=== PATIENT | female | born 1955 | race Caucasian/White ===

== ENCOUNTER 2017-10-06 15:12 | Emergency (ER) | payer SELFPAY ==
[~2017-10-06] VITALS: Ht 157.5 cm; Wt 100.0 kg
[2017-10-06 15:24] VITALS: BP 190/86; PULSE 71; RESP 16; TEMP 98.5; O2SAT 96
[2017-10-06] MEDS ORDERED: MECLIZINE HCL 25 MG TAB PO ONE (15:45)
[2017-10-06] MEDS ORDERED: ONDANSETRON ODT 4 MG TAB PO ONE (15:45)
--- NOTE | 2017-10-06 15:45 | PD ---
HPI Chief Complaint: Headache Time Seen by Provider: 15:27 Travel History International Travel<30 days: No Contact w/Intl Traveler<30days: No Traveled to known affect area: No History of Present Illness HPI 62-year-old normally healthy female presents emergency department with 2 week history of intermittent central headache pain and pressure to a max of 9 out of 10, which started on Mother's Day. Patient has since had intermittent recurrent headaches with associated nausea, and vertigo for the past 2 weeks. Patient denies significant fever, chills, sore throat, postnasal drip, cough, or chest congestion. Patient denies blurred vision or blind spots. She states no previous history of migraines in the past. Currently patient feels nauseous and has vomited a couple of times today, but states her headache currently is about a 2 out of 10. This has been the worst headache of her life. She denies abdominal pain, or diarrhea. No urinary symptoms. No vaginal symptoms. She has no known drug allergies. PFSH Past Medical History Autoimmune Disease: No Social History Alcohol Use: Yes Tobacco Use: No Substance Use: No Allergies-Medications (Allergen,Severity, Reaction): Coded Allergies: No Known Allergies (Verified Allergy, Severe, 03/14/03) Reported Meds & Prescriptions Reported Meds & Active Scripts Active Review of Systems Except as stated in HPI: all other systems reviewed are Neg General / Constitutional: No: Fever, Chills Eyes: No: Diploplia, Blurred Vision, Photophobia, Drainage, Redness, Foreign Body Sensation, Pain, Tearing, Blind Spots, Visual changes, Blindness HENT: Positive: Headaches, Vertigo, Earache (Pressure in the left ear.), No: Lightheadedness, Sore Throat, Rhinitis, Rhinorrhea, Congestion, Nosebleed, Neck Stiffness, Neck Pain, Gingival Bleeding, Dental Difficulties, Ear Discharge Cardiovascular: No: Chest Pain or Discomfort, Palpitations, Irregular Rhythm Respiratory: No: Cough, Shortness of Breath, Wheezing Gastrointestinal: Positive: Nausea, Vomiting (See history of present illness), No: Diarrhea, Abdominal Pain Genitourinary: No: Dysuria Musculoskeletal: No: Pain Skin: No Rash Neurologic: No: Weakness Psychiatric: No: Depression Endocrine: No: Polydipsia Hematologic/Lymphatic: No: Easy Bruising Physical Exam Narrative GENERAL: Moderately obese female appears in no acute distress. SKIN: Warm and dry. Normal color. Normal turgor. No rash. HEAD: Atraumatic. Normocephalic. Patient complains of tenderness in the frontal sinuses as well as the right maxillary sinus with palpation and percussion EYES: Pupils equal and round. No scleral icterus. No injection or drainage. Mild rotational nystagmus noted when looking to the right. ENT: No nasal bleeding or discharge. Mucous membranes pink and moist. TMs show bilateral serous otitis with mild bulging to both TMs. Posterior pharynx is unremarkable. Airways patent. Uvula is midline. Tongue is normal-appearing NECK: Trachea midline. Supple and nontender. CARDIOVASCULAR: Regular rate and rhythm. RESPIRATORY: No accessory muscle use. Clear to auscultation. Breath sounds equal bilaterally. GASTROINTESTINAL: Abdomen soft, non-tender, nondistended. Hepatic and splenic margins not palpable. MUSCULOSKELETAL: Extremities without clubbing, cyanosis, or edema. No obvious deformities. NEUROLOGICAL: Awake and alert. No obvious cranial nerve deficits. Motor grossly within normal limits. Five out of 5 muscle strength in the arms and legs. Normal speech. PSYCHIATRIC: Appropriate mood and affect; insight and judgment normal. Data Data Last Documented VS Vital Signs Date Time Temp Pulse Resp B/P (MAP) Pulse Ox O2 Delivery O2 Flow Rate FiO2 10/06/17 15:24 98.5 71 16 190/86 (120) [address] Brain W/O Iv Contrast(Rout) (10/06/17 15:38) Ondansetron Odt (Zofran Odt) (10/06/17 15:45) Meclizine (Antivert) (10/06/17 15:45) [facility] Medical Decision Making Medical Screen Exam Complete: Yes Emergency Medical Condition: Yes Differential Diagnosis Recurrent headache. Sinusitis. Intracranial bleed. Tumor. Narrative Course Pharynx appears medically stable at time of exam. CT of the head is ordered. Patient is given 4 mg Zofran ODT p.o. Patient also given [address] is unremarkable for acute process per radiologist. Patient will be started on high-dose amoxicillin 875 mg twice daily for 10 days. Patient also started on Flonase nasal spray 2 sprays each nostril daily. Patient also started on prednisone 20 mg daily for the next 5 days. Patient given meclizine 12.5 mg 4 times daily as needed vertigo. Patient is given Zofran 4 mg every 6 hours as needed nausea. Patient to follow-up with local primary care physician or return to emergency department if symptoms worsen as needed. Diagnosis Primary Impression: Chronic sinusitis, unspecified Qualified Codes: J32.1 - Chronic frontal sinusitis Additional Impressions: Serous otitis media Qualified Codes: H65.23 - Chronic serous otitis media, bilateral Benign paroxysmal positional vertigo, bilateral Patient Instructions: Benign Paroxysmal Positional Vertigo (ED), General Instructions, Rhinosinusitis (ED), Serous Otitis Media (ED) Med/Other Pt SpecificInfo: Prescription(s) given Disposition: DISCHARGE HOME Condition: Stable Daniel Saenz October 06, 2017 15:45
--- NOTE | 2017-10-06 17:50 | RADRPT ---
EXAM DATE: 10/06/2017 5:44 PM EDT AGE/SEX: 62 years / Female INDICATIONS: Headache, dizziness CLINICAL DATA: This is the patient's initial encounter. Patient reports that signs and symptoms have been present for 1 day and indicates a pain score of 2/10. MEDICAL/SURGICAL HISTORY: None. None. RADIATION DOSE: 34.60 CTDI (mGy) COMPARISON: No prior [facility] exams available for comparison. TECHNIQUE: CT of the head without contrast. Using automated exposure control and adjustment of the mA and/or kV according to patient size, radiation dose was kept as low as reasonably achievable to ob tain optimal diagnostic quality images. FINDINGS: Cerebrum: The ventricles are normal for age. No evidence of midline shift, mass lesion, hemorrhage or acute infarction. No extraaxial fluid collections are seen. Posterior Fossa: The cerebellum and brainstem are intact. The 4th ventricle is midline. The cerebe llopontine angle is unremarkable. Extracranial: The visualized portion of the orbits is intact. Skull: The calvaria is intact. No evidence of skull fracture. CONCLUSION: 1. Unremarkable CT scan of the brain. Electronically signed by: Lázaro Rasmussen MD 10/06/2017 5:49 PM EDT
[2017-10-06] MEDS ORDERED: ZOFR4TAB PO (18:12)
[2017-10-06] MEDS ORDERED: AMOX875T PO (18:12)
[2017-10-06] MEDS ORDERED: FLUT1SPR5 EACH NARE (18:12)
[2017-10-06] MEDS ORDERED: PRED20 PO (18:12)
[2017-10-06] MEDS ORDERED: MECL12.574 PO (18:12)
[2017-10-06] MEDS ORDERED: predniSONE 20 MG TAB PO ONE (18:15)
== END 2017-10-06 18:55 | disposition home or self-care (01) ==
LOC: NEPD 15:12
DX: J32.1 Chronic frontal sinusitis (principal); H65.23 Chronic serous otitis media, bilateral; H81.13 Benign paroxysmal vertigo, bilateral
CPT/HCPCS: 70450; 99283; J7512